=== PATIENT | male | born 1995 | race Caucasian/White ===

== ENCOUNTER 2017-10-29 19:49 | Inpatient (IN) | payer OTHER, BC ==
[~2017-10-29] VITALS: Ht 180.3 cm; Wt 59.0 kg
[2017-10-29] MEDS ORDERED: ACETAMINOPHEN 325 MG TABLET PO PRN (21:00)
[2017-10-29] MEDS ORDERED: METHOCARBAMOL 750 MG TABLET PO PRN (21:00)
[2017-10-29] MEDS ORDERED: MIRALAX 17 GM POWD.PACK PO PRN (21:00)
[2017-10-29] MEDS ORDERED: diphenhydrAMINE 50 MG CAPSULE PO PRN (21:00)
[2017-10-29] MEDS ORDERED: BUPRENORPHINE HCL 2 MG TAB.SUBL SL PRN (21:00)
[2017-10-29] MEDS ORDERED: CLONIDINE HCL 0.1 MG TABLET PO PRN (21:00)
[2017-10-29] MEDS ORDERED: ONDANSETRON ODT 4 MG TAB.RAPDIS SL PRN (21:00)
[2017-10-29] MEDS ORDERED: LORAZEPAM 1 MG TABLET PO PRN ×2 (21:00)
[2017-10-29] MEDS ORDERED: LORAZEPAM 2 MG/1 ML VIAL IM PRN (21:00)
[2017-10-29] MEDS ORDERED: DICYCLOMINE HCL 20 MG TABLET PO PRN (21:00)
[2017-10-29] MEDS ORDERED: ONDANSETRON 4 MG/2 ML VIAL IM PRN (21:00)
[2017-10-29] MEDS ORDERED: MAGNESIUM HYDROXIDE 30 ML LIQUID UDC PO PRN (21:00)
[2017-10-29] MEDS ORDERED: MAG HYDROX/AL HYDROX/SIMETH 30 ML LIQUID UDC PO PRN (21:00)
[2017-10-29] MEDS ORDERED: LOPERAMIDE HCL 2 MG CAPSULE PO PRN ×2 (21:00)
[2017-10-29 22:39] LABS: *AMPHETAMINE, URINE POSITIVE (NEGATIVE); *BARBITURATE, URINE NEGATIVE (NEGATIVE); *CANNABINOID, URINE NEGATIVE (NEGATIVE); *COCCAINE, URINE NEGATIVE (NEGATIVE); *OPIATE, URINE POSITIVE (NEGATIVE); *PHENCYCLIDINE SCREEN,URINE NEGATIVE (NEGATIVE)
[2017-10-30] VITALS: BP 132/84
[2017-10-30 02:29] LABS: BASOPHILS % (AUTO) 0.3 % (0.0-2.0); EOSINOPHILS # (AUTO) 0.1 K/uL (0.0-0.7); EOSINOPHILS % (AUTO) 1.6 % (0.0-7.0); HEMOGLOBIN 14.4 G/DL (14.0-18.0); LYMPHOCYTES # (AUTO) 2.8 K/UL (0.8-4.8); LYMPHOCYTES % (AUTO) 41.9 % (20.5-51.5); MEAN CORPUSCULAR HEMOGLOBIN 28.8 UUG (27.0-31.0); MEAN CORPUSCULAR HGB CONC 33 g/dL (32.0-37.0); MEAN CORPUSCULAR VOLUME 88.3 FL (82.0-92.0); MONOCYTES # (AUTO) 0.5 K/UL (0.1-1.30); MONOCYTES % (AUTO) 7.8 % (0.0-11.0); NEUTROPHILS # (AUTO) 3.2 K/UL (1.8-8.9); NEUTROPHILS % (AUTO) 48.4 % (38.5-71.5); PLATELET COUNT (AUTO) 292 K/UL (150-450); RED BLOOD CELL COUNT(AUTO) 4.98 MIL/UL (4.7-6.1); WHITE BLOOD COUNT (AUTO) 6.6 K/UL (4.0-11.2)
[2017-10-30 02:32] LABS: ETHANOL < 3 MG/DL (0-0)
[2017-10-30 04:00] VITALS: BP 128/76
[2017-10-30 04:48] LABS: ALANINE AMINOTRANSFERASE 40 U/L (16-63); ALKALINE PHOSPHATASE 70 U/L (50-136); ASPARTATE AMINOTRANSFERASE 36 U/L (15-37); BILIRUBIN,TOTAL 0.4 mg/dL (0.2-1.0); CARBON DIOXIDE 27 mmol/L (21-32); CHLORIDE 103 mmol/L (98-107); CREATININE 1.1 mg/dL (0.6-1.3); GLUCOSE 103 mg/dL (74-106); MAGNESIUM 2.1 mg/dL (1.8-2.4); POTASSIUM 3.9 mmol/L (3.5-5.1); TOTAL PROTEIN, SERUM 7.4 g/dL (6.4-8.2); UREA NITROGEN, BLOOD 16 mg/dL (7-18)
[2017-10-30 08:00] VITALS: BP 102/60
[2017-10-30] MEDS ORDERED: TUBERCULIN,PURIF.PROT.DERIV. 5 TU/0.1 ML TEST ID ONE (09:00)
[2017-10-30] MEDS: BUPRENORPHINE HCL 2 MG TAB.SUBL SL SCH ×4 (09:00→21:50)
[2017-10-30 12:00] VITALS: BP 108/63
[2017-10-30 16:00] VITALS: BP 110/68
[2017-10-30] MEDS ORDERED: ACET-2154 PO (17:45)
[2017-10-30 20:00] VITALS: BP 135/68
[2017-10-30] MEDS: GABAPENTIN 300 MG CAPSULE PO SCH (21:00)
[2017-10-30] MEDS: IBUPROFEN 600 MG TABLET PO PRN (22:50)
[2017-10-31] VITALS: BP 124/76
[2017-10-31] MEDS: IBUPROFEN 600 MG TABLET PO PRN (08:07)
[2017-10-31] MEDS: BUPRENORPHINE HCL 2 MG TAB.SUBL SL SCH ×3 (08:09→21:56)
[2017-10-31 08:38] LABS: HEPATITIS B SURFACE AG Negative (Negative)
[2017-10-31] MEDS: GABAPENTIN 300 MG CAPSULE PO SCH ×3 (09:00→21:00)
[2017-10-31 09:36] VITALS: BP 110/59
[2017-10-31 12:00] VITALS: BP_SYST 109; BP_SYST 166; BP_DIAS 62; BP_DIAS 7
[2017-10-31] MEDS ORDERED: KETOROLAC TROMETHAMINE 30 MG INJ IM PRN (13:00)
[2017-10-31] MEDS ORDERED: BENZOCAINE ORAL CARE 12 ML BOTTLE MM PRN (13:00)
[2017-10-31 16:30] VITALS: BP 126/53
[2017-10-31 20:00] VITALS: BP 134/71
[2017-11-01] VITALS: BP 137/77
[2017-11-01 04:00] VITALS: BP 132/72
[2017-11-01 08:00] VITALS: BP 129/72
[2017-11-01] MEDS ORDERED: BUPRENORPHINE HCL 2 MG TAB.SUBL SL SCH (09:00)
[2017-11-01] MEDS: GABAPENTIN 300 MG CAPSULE PO SCH (09:00)
[2017-11-01] MEDS: IBUPROFEN 600 MG TABLET PO PRN ×2 (10:09→21:57)
[2017-11-01 12:00] VITALS: BP 121/61
[2017-11-01] MEDS: BUPRENORPHINE HCL 2 MG TAB.SUBL SL SCH ×2 (15:00→21:57)
[2017-11-01 16:00] VITALS: BP 135/79
[2017-11-01 20:00] VITALS: BP 140/80
[2017-11-02] VITALS: BP 122/70
[2017-11-02 04:00] VITALS: BP 75/70
[2017-11-02 08:00] VITALS: BP 115/65
[2017-11-02] MEDS: BUPRENORPHINE HCL 2 MG TAB.SUBL SL SCH ×3 (09:50→20:53)
[2017-11-02 12:00] VITALS: BP 133/72
[2017-11-02 16:00] VITALS: BP 125/68
[2017-11-02 20:00] VITALS: BP 136/65
[2017-11-03] VITALS: BP 128/77
[2017-11-03] MEDS: IBUPROFEN 600 MG TABLET PO PRN ×3 (00:27→21:00)
[2017-11-03 08:00] VITALS: BP 115/85
[2017-11-03] MEDS ORDERED: BUPRENORPHINE HCL 2 MG TAB.SUBL SL SCH (09:00)
[2017-11-03 12:00] VITALS: BP 108/74
[2017-11-03 16:00] VITALS: BP 110/65
[2017-11-03 20:00] VITALS: BP 119/64
[2017-11-04] VITALS: BP 121/65
[2017-11-04] MEDS: IBUPROFEN 600 MG TABLET PO PRN (04:23)
[2017-11-04 08:00] VITALS: BP 121/65
== END 2017-11-04 09:33 | disposition other institution (70) | DRG 895 ==
LOC: SRC 20:07
PROVIDERS: ADMIT Internal Medicine; ATTEND Internal Medicine
PROC: HZ2ZZZZ Detoxification Services for Substance Abuse Treatment (ICD-10-PCS; principal; 2017-10-29)
PROC: HZ41ZZZ Group Counseling for Substance Abuse Treatment, Behavioral (ICD-10-PCS; 2017-11-03)
DX: F15.23 Other stimulant dependence with withdrawal (principal); F33.1 Major depressive disorder, recurrent, moderate; F11.23 Opioid dependence with withdrawal; F10.230 Alcohol dependence with withdrawal, uncomplicated; F12.90 Cannabis use, unspecified, uncomplicated; Y90.9 Presence of alcohol in blood, level not specified; Z59.0 Homelessness; Z82.49 Family history of ischemic heart disease and other diseases of the circulatory system; Z81.3 Family history of other psychoactive substance abuse and dependence; F17.210 Nicotine dependence, cigarettes, uncomplicated; Z91.89 Other specified personal risk factors, not elsewhere classified; K08.89 Other specified disorders of teeth and supporting structures; Z59.1 Inadequate housing
CPT/HCPCS: 36415; 70030-TC; 80307; 80324; 80361; 83735; 85025; 86580; 86592; 86705; 86803; 87340; 87806; A4663; G0480

== ENCOUNTER 2018-04-19 18:05 | Inpatient (IN) | payer OTHER, BC ==
[~2018-04-19] VITALS: Ht 180.3 cm; Wt 63.5 kg
[~2018-04-19 18:05] MED LIST: ACET-2154 PO
--- NOTE | 2018-04-19 18:57 | NUR ---
Intake assessment Patient is a 22-year old, male, seen at intake, A&Ox4, no SOB and no anxiety noted at this time. Discussed with patient admission policies of the unit. Patient is coherent and able to respond to questions appropriately. Pt is ambulatory with steady gait. Pt reports that he has been using these substances daily for the past 8 months: Heroin 3 gm IV daily , Methamphetamine 1 gm smoke daily, and Xanax 2 mg infrequently. Smokes tobacco 2 packs/day. Pt reports he last used heroin 1 gram this morning. He last used meth about 2 hours ago, Xanax last week. He has not used ETOH. Vital signs taken and as follows: TW=029/63, P=120, O2 sat on RA=99%, RR=20, T=98.7. Pt has NKA, history of withdrawal induced seizures. Last seizure 2011. Past history of intoxication induced overdose. PMH of depression. Pt states he does not take daily medications. Pt presents as unshaved, disheveled, dirty finger nails and odorous. Avoids eye contact, restless, easily distracted, fine tremors. Pt verbalized instructions and teachings regarding disposal of narcotics, unit protocols such as taking of vital signs Q4H and handling and disposal of contraband.
[2018-04-19] MEDS ORDERED: ONDANSETRON ODT 4 MG TAB.RAPDIS SL PRN (19:00)
[2018-04-19] MEDS ORDERED: MAG HYDROX/AL HYDROX/SIMETH 30 ML LIQUID UDC PO PRN (19:00)
[2018-04-19] MEDS ORDERED: LORAZEPAM 1 MG TABLET PO PRN (19:00)
[2018-04-19] MEDS ORDERED: MIRALAX 17 GM POWD.PACK PO PRN (19:00)
[2018-04-19] MEDS ORDERED: DICYCLOMINE HCL 20 MG TABLET PO PRN (19:00)
[2018-04-19] MEDS ORDERED: MAGNESIUM HYDROXIDE 30 ML LIQUID UDC PO PRN (19:00)
[2018-04-19] MEDS ORDERED: LOPERAMIDE HCL 2 MG CAPSULE PO PRN ×2 (19:00)
[2018-04-19] MEDS ORDERED: ACETAMINOPHEN 325 MG TABLET PO PRN (19:00)
[2018-04-19] MEDS ORDERED: CLONIDINE HCL 0.1 MG TABLET PO PRN (19:00)
[2018-04-19] MEDS ORDERED: LORAZEPAM 2 MG/1 ML VIAL IM PRN (19:00)
[2018-04-19] MEDS ORDERED: HYDROXYZINE PAMOATE 25 MG CAPSULE PO PRN (19:00)
[2018-04-19] MEDS ORDERED: BUPRENORPHINE HCL 2 MG TAB.SUBL SL PRN (19:00)
[2018-04-19] MEDS ORDERED: diphenhydrAMINE 50 MG CAPSULE PO PRN (19:00)
[2018-04-19] MEDS ORDERED: ONDANSETRON 4 MG/2 ML VIAL IM PRN (19:00)
[2018-04-19 19:23] LABS: *AMPHETAMINE, URINE POSITIVE (NEGATIVE); *BARBITURATE, URINE NEGATIVE (NEGATIVE); *CANNABINOID, URINE NEGATIVE (NEGATIVE); *COCCAINE, URINE NEGATIVE (NEGATIVE); *OPIATE, URINE POSITIVE (NEGATIVE); *PHENCYCLIDINE SCREEN,URINE NEGATIVE (NEGATIVE)
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
[2018-04-19 20:00] VITALS: BP 131/75
[2018-04-19] MEDS: GABAPENTIN 300 MG CAPSULE PO SCH ×2 (21:00→21:39)
[2018-04-19] MEDS ORDERED: LORAZEPAM 1 MG TABLET PO SCH (21:00)
[2018-04-19] MEDS: DOXYCYCLINE HYCLATE 100 MG TABLET PO SCH (21:38)
--- NOTE | 2018-04-19 21:38 | NUR ---
Meds Refused Neurontin 300mg PO scheduled for 2100 and Benedryl 50mg PO PRN refused despite being requested. Will continue to monitor and promptly attend to all pt needs
--- NOTE | 2018-04-20 | NUR ---
COWS/CIWA Deferred. Able to obtain midnight VS's, however pt too somnalent for attempt at COWS/CIWA. VSS's. Will continue to monitor pt, promptly attending to all pt needs.
[2018-04-20 00:15] VITALS: BP 113/67
[2018-04-20 00:31] LABS: ETHANOL < 3 MG/DL (0-0)
[2018-04-20 00:35] LABS: ALANINE AMINOTRANSFERASE 34 U/L (16-63); ALKALINE PHOSPHATASE 105 U/L (50-136); ASPARTATE AMINOTRANSFERASE 21 U/L (15-37); BILIRUBIN,TOTAL 0.2 mg/dL (0.2-1.0); CARBON DIOXIDE 31 mmol/L (21-32); CHLORIDE 103 mmol/L (98-107); CREATININE 0.9 mg/dL (0.6-1.3); GLUCOSE 112 mg/dL (74-106); MAGNESIUM 1.9 mg/dL (1.8-2.4); POTASSIUM 3.9 mmol/L (3.5-5.1); TOTAL PROTEIN, SERUM 7.6 g/dL (6.4-8.2); UREA NITROGEN, BLOOD 17 mg/dL (7-18)
[2018-04-20 01:27] LABS: THYROID STIMULATING HORMONE 0.094 mIU/mL (0.358-3.740)
[2018-04-20 04:00] VITALS: BP 110/59
--- NOTE | 2018-04-20 05:15 | NUR ---
Admission Attempt Attempt made to rouse pt and continue/complete admission. When pt responded with barely audible words "I'm tired". Unable to complete admission, will report to day RN in endorsement as to areas needing completion.
--- NOTE | 2018-04-20 06:00 | NUR ---
Lab Refusal Lab attempt to redraw CBC (first was clotted) refused by pt r/t sleeping. Will inform day RN in endorsement to contact lab when pt awake.
--- NOTE | 2018-04-20 06:25 | NUR ---
After prodding by CN, pt agrees to try to progress with admission. With great prodding and loudly speaking RN able to complete another 25% of final assessment. Will report of to Day nurse as to areas needing completion.
--- NOTE | 2018-04-20 06:40 | NUR ---
End of Shift Pt is a 22 y/o male admitted 04/19/18 for medically managed withdrawal/detox from Xanax, Heroin and Methamphetamine salts. Gabapentin 300mg PO and Benedryl 50mg PO were refused with evening meds, there were no other PRN's. Pt slept for 9 hours, with 588 mls intake, 1 voids and 0 BM. Last COWS was 6 at 04:00. Due to pt's early intoxication and continued somnolence admission will be completed by day RN. Repeat CBC refused by pt at 06:00 r/t sleeping. Will continue to monitor pt until endorsement, promptly attending to all pt needs.
--- NOTE | 2018-04-20 07:50 | NUR ---
START OF SHIFT NOTE Received report from night nurse, 22 year old male admitted for Xanax/ Heroin/Meth withdrawal. Patient continues with Subutex taper tolerating well. Per endorsement patient did not receive any PRN'S, patient refused his scheduled gabapentin, COWS-6, slept for 9 hours. Patient cont with PO antibiotic for RUE cellulitis. Received patient asleep responsive to verbal and tactile stimuli. Breathing normal no SOB noted, skin intact warm and dry to touch. Patient is due for scheduled medications. All safety measures in place. Will cont to monitor.
[2018-04-20 08:00] VITALS: BP 117/63
[2018-04-20] MEDS: GABAPENTIN 300 MG CAPSULE PO SCH ×3 (08:32→20:07)
[2018-04-20] MEDS: DOXYCYCLINE HYCLATE 100 MG TABLET PO SCH ×2 (08:32→20:06)
[2018-04-20] MEDS ORDERED: TUBERCULIN,PURIF.PROT.DERIV. 5 TU/0.1 ML TEST ID ONE (09:00)
[2018-04-20] MEDS: BUPRENORPHINE HCL 2 MG TAB.SUBL SL SCH ×3 (09:57→20:06)
[2018-04-20 12:00] VITALS: BP 142/86
[2018-04-20] MEDS: IBUPROFEN 600 MG TABLET PO PRN (13:11)
[2018-04-20] MEDS: METHOCARBAMOL 750 MG TABLET PO PRN (13:11)
--- NOTE | 2018-04-20 13:11 | NUR ---
PRN MEDICATIONS Patient reported body aches restless legs, muscle spasms 6/10, nausea. PRN Motrin 600mg PO. Robaxin 750MG PO, Zofran 4mg SL as ordered. Will cont to monitor and reassess.
--- NOTE | 2018-04-20 13:33 | NUR ---
ZOFRAN REASSESSMENT Per patient nausea improved.
--- NOTE | 2018-04-20 14:11 | NUR ---
PRN REASSESSMENT Per patient Motrin and Robaxin was effective in lowering the body aches, restless legs and muscle spasms 2/10.
[2018-04-20 16:00] VITALS: BP 143/77
[2018-04-20] MEDS: LORAZEPAM 1 MG TABLET PO PRN (17:25)
--- NOTE | 2018-04-20 17:32 | NUR ---
PRN MEDICATIONS Patient's CIWA score noted 13, COWS score noted-15, patient noted restless anxious, agitated, difficult to sit still, goose bumps, body aches, light headed, sweats, chills. PRN Subutex 4mg SL, Ativan 2mg PO given as ordered. Will cont tto monitor and reassess.
--- NOTE | 2018-04-20 18:00 | NUR ---
SUBUTEX REASSESSMENT COWS score noted 9, patient reported Subutex was effective in controlling s/s of withdrawal.
--- NOTE | 2018-04-20 18:32 | NUR ---
ATIVAN REASSESSMENT CIWA score noted 8, per patient Ativan was effective in controlling s/s of withdrawal.
[2018-04-20 18:39] LABS: BASOPHILS % (AUTO) 0.2 % (0.0-2.0); EOSINOPHILS % (AUTO) 0.2 % (0.0-7.0); HEMOGLOBIN 13.7 g/dL (12.5-16.3); LYMPHOCYTES # (AUTO) 1.4 K/uL (20.0-40.0); LYMPHOCYTES % (AUTO) 19.8 % (20.5-51.5); MEAN CORPUSCULAR HGB CONC 34 g/dL (32.5-36.3); MEAN CORPUSCULAR VOLUME 83.7 fL (73.0-96.2); MONOCYTES # (AUTO) 0.3 K/uL (2.0-10.0); MONOCYTES % (AUTO) 4.9 % (0.0-11.0); NEUTROPHILS # (AUTO) 5.1 K/uL (1.8-8.9); NEUTROPHILS % (AUTO) 74.9 % (38.5-71.5); PLATELET COUNT (AUTO) 328 K/uL (152-348); RED BLOOD CELL COUNT(AUTO) 4.89 MIL/uL (4.06-5.63); WHITE BLOOD COUNT (AUTO) 6.8 K/uL (3.6-10.2)
--- NOTE | 2018-04-20 19:07 | NUR ---
END OF SHIFT NOTE Gave report to night nurse, patient admitted for Heroin/Xanax/Meth withdrawal. Patient cont with his Subutex taper and PRN'S Ativan tolerating well. Patient presented with anxiety, agitation, body aches, restless, goose bumps, nauseated, muscle cramps, restless legs. Patient was given PRN Motrin, Robaxin, Zofran, Subutex, Ativan noted to be effective. Patient rested in his room most of the day did not attend any group. Encourage patient to attend groups to learn new coping skills. Patient consumed 100% of his meals. Patient is compliant with treatment plan and medications. All safety measures in place. Patient endorsed to night nurse in stable condition.
--- NOTE | 2018-04-20 19:30 | NUR ---
Start of Shift Pt is a 22 y/o male admitted 04/19/18 for medically managed withdrawal/detox from Heroin, Xanax, and Methamphetamine salts. Pt found in bed asleep, arousable to voice after repeated attempts and/or touch and extremely drowsy, unable to stay awake longer than a few seconds, or answer questions with more than a couple of syllables. Endorsement from day nurse reports a COWS of 9, with multiple PRN's, including Subutex and Ativan. Pt presents with c/o restless legs. Pt asked if able to finish admission questioning at present, replies "I'm not feeling well". Pt tossing in bed when awake, unshaven, disheveled, odorous. Evening meds reviewed with pt. Will continue to monitor pt for shift until giving endorsement, promptly attending to all pt needs.
[2018-04-20 20:00] VITALS: BP 103/57
[2018-04-20] MEDS: CLONIDINE HCL 0.1 MG TABLET PO SCH (20:06)
[2018-04-20] MEDS: BACLOFEN 10 MG TABLET PO SCH (20:07)
[2018-04-21] VITALS: BP 121/61
[2018-04-21 04:00] VITALS: BP 96/48
[2018-04-21] MEDS: METHOCARBAMOL 750 MG TABLET PO PRN ×2 (04:17→10:02)
[2018-04-21] MEDS: LORAZEPAM 1 MG TABLET PO PRN (04:17)
--- NOTE | 2018-04-21 04:17 | NUR ---
PRN Med Ativan 2mg PO for a CIWA of 13, Robaxin 750mg PO for back myalgias, legs, 7/10 pain. Pt asked if able to take 5-10 minutes to complete admission. Pt replies, "not right now, I need to get some sleep". Pt agrees 6am is ok to finish admission. Will continue to monitor pt, reassessing in 1 hour, and promptly attending to all needs
--- NOTE | 2018-04-21 05:17 | NUR ---
PRN Reassessments Robaxin 750mg PO and Ativan 2mg PO given 1 hour prior. At present pt appears improved, but still some restlessness and agitation/thrashing present. Meds paritally effective.
[2018-04-21] MEDS: IBUPROFEN 600 MG TABLET PO PRN ×2 (05:33→10:02)
--- NOTE | 2018-04-21 05:36 | NUR ---
PRN Med Motrin 600mg PO given for body aches/myalgias, Pt unable to articulate. Restlessness, thrashing, agitation benedict indicators. Will continue to monitor pt, promptly attending to all pt needs.
--- NOTE | 2018-04-21 06:30 | NUR ---
Admission Attempts Attempts for additional admission information made during night. Earlier, pt says not feeling well. Later at 0400, pt asked if able to complete admission, replies to come back later, that he hadn't had any sleep all night. Pt agrees to 6am. At 6 am attempt made with loudly and repeatedly trying to rouse pt by voice and plascencia back/shoulder/arm rubbing. Unable to get info from Pt regarding use, pt says "I don't know"! Endorsement given to day nurse, Citlalli, who will attempt to finish admission information or leave pt coherent for evening shift early completion.
--- NOTE | 2018-04-21 06:33 | NUR ---
PRN Reassessment Motrin 600mg PO given 1 hour prior for body aches/myalgias. At present pt is resting more quietly, less tossing/thrashing. Med effective. Will continue to monitor until giving endorsement, promptly attending to all pt needs.
--- NOTE | 2018-04-21 06:37 | NUR ---
End of Shift Pt is a 22 y/o male admitted 04/19/18 for medically managed withdrawal/detox from Heroin, Xanax, and Methamphetamine salts. PRN's for shift include: Ativan 2mg PO, Robaxin 750mg PO at 0417, Motrin 600mg PO at 0533. Last COWS/CIWA was 16 and 13 at 0400. Pt slept for 9 hours, with 850 mls input, 2 voids and 1 BM's. Will continue to monitor pt for shift until giving endorsement, promptly attending to all pt needs.
--- NOTE | 2018-04-21 07:10 | NUR ---
START OF SHIFT : PATIENT IS A 22 YR OLD MALE ADMITTED TO [facility] ON 04/19/18 FOR A MEDICALLY SUPERVISED WITHDRAWAL FROM BENZODIAZEPINES( XANAX), OPIATES ( HEROIN IV) AND METHAMPHETAMINES, HE IS ON A SUBUTEX TAPER WITH PRN ATIVAN. PATIENT IS ASLEEP IN BED AT THIS TIME, BREATHING EVEN AND UNLABORED, SIDE RAILS UP X2. PRN MEDS GIVEN ON PM SHIFT : ATIVAN 2MG PO, ROBAXIN AND MOTRIN. PATIENT SLEPT FOR 9+ HOURS AND LAST COWS 16 AND CIWA 13 @ 0400. CONTINUE TO FOLLOW MD PLAN OF CARE AND OFFER SUPPORT.
[2018-04-21 08:00] VITALS: BP 104/53
[2018-04-21] MEDS ORDERED: BUPRENORPHINE HCL 2 MG TAB.SUBL SL SCH ×2 (09:00→15:00)
[2018-04-21] MEDS: DOXYCYCLINE HYCLATE 100 MG TABLET PO SCH ×2 (10:02→20:49)
[2018-04-21] MEDS: BACLOFEN 10 MG TABLET PO SCH ×3 (10:02→20:48)
[2018-04-21] MEDS: GABAPENTIN 300 MG CAPSULE PO SCH ×2 (10:02→14:54)
[2018-04-21] MEDS: CLONIDINE HCL 0.1 MG TABLET PO SCH ×3 (10:03→20:49)
--- NOTE | 2018-04-21 10:10 | NUR ---
PRN MEDICATION ATIVAN 1MG PO FOR CIWA 12 ROBAXIN 750MG PO/MOTRIN 600MG PO/ BENTYL 20MG PO FOR GENERALIZED MUSCLE PAIN WILL REASSESS
[2018-04-21] MEDS ORDERED: KETOROLAC TROMETHAMINE 30 MG INJ IM PRN (10:45)
--- NOTE | 2018-04-21 11:10 | NUR ---
PRN REASSESS PATIENT IS ASLEEP COMFORTABLY IN BED, BREATHING EVEN AND UNLABORED, WILL CONTINUE TO MONITOR
[2018-04-21 12:00] VITALS: BP 105/64
[2018-04-21] MEDS: BUPRENORPHINE HCL 2 MG TAB.SUBL SL SCH ×3 (13:09→20:47)
--- NOTE | 2018-04-21 15:45 | NUR ---
BLOOD LABS DRAWN
--- NOTE | 2018-04-21 16:00 | NUR ---
1600 VITALS REFUSED BY PATIENT
[2018-04-21 16:27] LABS: CREATININE 0.8 mg/dL (0.6-1.3); MAGNESIUM 1.9 mg/dL (1.8-2.4); POTASSIUM 4.3 mmol/L (3.5-5.1)
[2018-04-21 16:41] LABS: THYROID STIMULATING HORMONE 1.202 mIU/mL (0.358-3.740)
[2018-04-21 17:08] LABS: HEPATITIS B SURFACE AG Negative (Negative)
--- NOTE | 2018-04-21 18:47 | NUR ---
END OF SHIFT : PATIENT IS A 22 YR OLD MALE ADMITTED TO [facility] ON 04/19/18 FOR A MEDICALLY SUPERVISED DETOX FROM BENZODIAZEPINES AND OPIATES ( HEROIN IV)AND METHAMPHETAMINES. HE IS ON A 5 DAY SUBUTEX TAPER AND THIS IS DAY 2. PATIENT HAS SPENT MOST OF THE DAY ASLEEP IN BED, VITAL SIGNS STABLE, AWAKENS ONLY TO TAKE MEDS, NOT EATING MEALS BUT IS DRINKING FLUID. PRN MEDS GIVEN THIS SHIFT: ROBAXIN 750MG PO, MOTRIN 600MG PO, ATIVAN 1MG PO AND BENTYL 20MG PO. PATIENT HAD A FLUID INTAKE OF 750 ML,1 VOID AND 0 BM. PATIENT APPEARS UNSHAVEN, UNKEMPT AND ODOROUS AND LIES IN POSITION WITH COVERS PULLED OVER HIS HEAD, ENCOURAGED PATIENT TO GET UP AND TAKE A SHOWER BUT HE STATES " I'M TIRED I JUST WANT TO SLEEP ", HE IS HIGHLY AGITATED AND IRRITABLE WHEN TRYING TO GET A VERBAL RESPONSE. LAST COWS 13 @ 1600. CONTINUE TO FOLLOW MD PLAN OF CARE AND OFFER SUPPORT. ENDORSED TO NIGHT NURSE.
--- NOTE | 2018-04-21 19:30 | NUR ---
Start of Shift Pt is a 22 y/o male admitted 04/19/18 for medically managed withdrawal/detox from Xanax, Heroin, and Methamphetamine salts. Endorsement received from day nurse, admission reported as complete. Pt report and observation consistent: pt in darkened room in bed with tv on. Pt appears to be sleeping, upper half wrapped in sheets with head coverd, pt responds to repeated voice, hypoactive, lethargic. Evening meds reviewed with pt, Ativan/Subutex both scheduled. Will continue to monitor patient for duration of shift until morning endorsement, promptly attending to all pt needs.
[2018-04-21 20:00] VITALS: BP 120/62
[2018-04-21] MEDS ORDERED: GABAPENTIN 300 MG CAPSULE PO SCH (21:00)
[2018-04-21] MEDS ORDERED: LORAZEPAM 1 MG TABLET PO SCH (21:00)
--- NOTE | 2018-04-22 | NUR ---
VS's COWS Deferred Midnight VS's, COWS deferred r/t pt sleeping/refused. RR 14, even and nonlabored. Will continue to monitor pt, promptly attending to all needs.
--- NOTE | 2018-04-22 04:00 | NUR ---
VS's COWS Deferred 0400 VS's, COWS deferred r/t pt sleeping/refused. RR 14, even and nonlabored. Will continue to monitor pt, promptly attending to all needs.
[2018-04-22 06:27] LABS: BASOPHILS % (AUTO) 0.5 % (0.0-2.0); EOSINOPHILS # (AUTO) 0.1 K/uL (0.0-0.7); EOSINOPHILS % (AUTO) 1.9 % (0.0-7.0); HEMOGLOBIN 13.3 g/dL (12.5-16.3); LYMPHOCYTES # (AUTO) 1.9 K/uL (20.0-40.0); LYMPHOCYTES % (AUTO) 31.4 % (20.5-51.5); MEAN CORPUSCULAR HGB CONC 33 g/dL (32.5-36.3); MONOCYTES # (AUTO) 0.4 K/uL (2.0-10.0); MONOCYTES % (AUTO) 6.3 % (0.0-11.0); NEUTROPHILS # (AUTO) 3.7 K/uL (1.8-8.9); NEUTROPHILS % (AUTO) 59.9 % (38.5-71.5); PLATELET COUNT (AUTO) 289 K/uL (152-348); RED BLOOD CELL COUNT(AUTO) 4.76 MIL/uL (4.06-5.63); WHITE BLOOD COUNT (AUTO) 6.1 K/uL (3.6-10.2)
--- NOTE | 2018-04-22 07:02 | NUR ---
End of Shift Pt is a 22 y/o male admitted 04/19/18 for medically managed withdrawal/detox from Xanax, Heroin, and Methamphetamine salts. Pt's affect/mood remains labile, uncooperative ignoring nursing requests, passing glaring looks at nurse. There were no PRN meds given this shift . Pt slept for 8 hours, with 1827 input, 1 voids and 0 BM's. Will continue to monitor patient for duration of shift until morning endorsement, promptly attending to all pt needs.
[2018-04-22 08:00] VITALS: BP 106/60
--- NOTE | 2018-04-22 08:15 | NUR ---
START OF SHIFT: RECEIVED PT A/O X 4. HE PRESENTS WITH IRRITABLE MOOD AND CONGRUENT AFFECT. HE REPORTS BODY ACHES,SWEATS,RESTLESS LEGS AND AGITATION. HE IS DISHEVELED AND FIDGETY. SUBUTEX TAPER IN PROGRESS TO MANAGE S/S OF W/D. COWS 7 CIWA 8. ENCOURAGED INCREASED FLUIDS TO ASSIST IN FACILITATING DETOX PROCESS. ENCOURAGED GROUP[ ATTENDANCE TO IMPROVE COPING SKILLS AND PREVENT RELAPSE/ WILL CONTINUE TO MONITOR AND OFFER SUPPORT.
[2018-04-22] MEDS: BACLOFEN 10 MG TABLET PO SCH (09:49)
[2018-04-22] MEDS: CLONIDINE HCL 0.1 MG TABLET PO SCH ×2 (09:49→15:22)
[2018-04-22] MEDS: DOXYCYCLINE HYCLATE 100 MG TABLET PO SCH ×2 (09:50→20:57)
[2018-04-22] MEDS: BUPRENORPHINE HCL 2 MG TAB.SUBL SL SCH ×3 (09:50→20:57)
[2018-04-22] MEDS: GABAPENTIN 300 MG CAPSULE PO SCH ×3 (09:50→20:57)
[2018-04-22 12:00] VITALS: BP 117/61
[2018-04-22] MEDS: BACLOFEN 20 MG TABLET PO SCH ×2 (15:21→20:57)
[2018-04-22 16:00] VITALS: BP 115/59
--- NOTE | 2018-04-22 18:48 | NUR ---
END OF SHIFT: PT CONTINUES ON SUBUTEX TAPER TO MANAGE S/S OF W/D WHICH INCLUDE REPORTED BODY ACHES,ANXIETY,CHILLS,SWEATS AND RESTLESSNESS. LAST COWS 5 CIWA 6. HE SLEPT ON AND OFF MOST OF SHIFT AND WAS COMPLIANT WITH INCREASED FLUIDS. EDUCATED PT ON IMPORTANCE OF GROUP ATTENDANCE AND LEARNING NEW COPING SKILLS. WILL PASS SHIFT REPORT TO ONCOMING NIGHT NURSE.
--- NOTE | 2018-04-22 19:30 | NUR ---
START OF SHIFT Pt is a 22 y/o male admitted on 04/19/18 for opiate, benzo and meth withdrawal. Pt is on a 5 day Subutex taper with PRN Ativan available, tolerating well. No PRNs and last COWS 5 and CIWA 6 during day shift. Upon assessment pt laying in bed and presents with anxiety, restlessness, yawning, intermittent sweats and chills, disheveled appearance, flat affect, dysphoria , anhedonia and is isolative. Pt also complains of toothache. Medications due. Safety measures in place. Call light within reach. Will continue to monitor.
[2018-04-22 20:00] VITALS: BP 120/68
[2018-04-22] MEDS: CLONIDINE HCL 0.2 MG TABLET PO SCH (21:00)
[2018-04-22] MEDS: IBUPROFEN 600 MG TABLET PO PRN (22:29)
--- NOTE | 2018-04-22 22:29 | NUR ---
PRN MOTRIN ADMINISTRATION Pt reports right-sided toothache 04/10. Safety measures in place. Call light within reach. Will continue to monitor.
--- NOTE | 2018-04-22 23:29 | NUR ---
PRN MOTRIN REASSESSMENT Pt laying in bed with eyes closed, medication noted effective. Safety measures in place. Call light within reach. Will continue to monitor.
--- NOTE | 2018-04-23 | NUR ---
COWS/CIWA DEFERRED AND VITALS REFUSED Pt laying in bed with eyes closed, COWS/CIWA deferred, to be assessed when pt is awake per orders. Vitals refused. Respirations even and unlabored. Safety measures in place. Call light within reach. Will continue to monitor.
[2018-04-23] MEDS: IBUPROFEN 600 MG TABLET PO PRN ×2 (05:44→21:06)
--- NOTE | 2018-04-23 05:44 | NUR ---
PRN Motrin Patient complained of 7/10 tooth pain. PRN Motrin administered as ordered. Will monitor for effectiveness of medication.
--- NOTE | 2018-04-23 06:44 | NUR ---
PRN MOTRIN REASSESSMENT Pt laying in bed with eyes closed, medication noted effective. Safety measures in place. Call light within reach. Will continue to monitor.
--- NOTE | 2018-04-23 07:07 | NUR ---
END OF SHIFT Pt is a 22 y/o male admitted on 04/19/18 for opiate, benzo and meth withdrawal. Pt is on a 5 day Subutex taper with PRN Ativan available, tolerating well. Pt presented with anxiety, restlessness, yawning, intermittent sweats and chills, disheveled appearance, difficulty staying asleep, flat affect, dysphoria , anhedonia and is isolative. Pt also complained of toothache. Scheduled medications and PRN Motrin x 2 administered, effective in S/S of withdrawal AEB COWS 6 and CIWA 8 lowered to COWS 6 and CIWA 7 and as verbalized by pt. Pt slept 7 hours. Intake 1000 ml, void x 3, stool x 0. Safety measures in place. Call light within reach. Pts needs have been met. Endorsed to day shift nurse.
[2018-04-23 08:00] VITALS: BP 142/73
--- NOTE | 2018-04-23 08:05 | NUR ---
START OF SHIFT: RECEIVED PT A/O X 4. HE PRESENTS WITH ANXIOUS MOOD AND GUARDED AFFECT. HE REPORTS BODY ACHES,RESTLESS LEGS AND ANXIETY. SUBUTEX TAPER IN PROGRESS TO MANAGE S/S OF W/D. COWS 6 CIWA 5. ENCOURAGED INCREASED FLUIDS TO ASSIST IN FACILITATING DETOX PROCESS. ENCOURAGED GROUP ATTENDANCE TO IMPROVE COPING SKILLS AND PREVENT RELAPSE. WILL CONTINUE TO MONITOR AND MANAGE S/S OF W/D.
[2018-04-23] MEDS: DOXYCYCLINE HYCLATE 100 MG TABLET PO SCH ×2 (08:30→21:06)
[2018-04-23] MEDS: BACLOFEN 20 MG TABLET PO SCH ×3 (08:30→21:06)
[2018-04-23] MEDS: BUPRENORPHINE HCL 2 MG TAB.SUBL SL SCH ×2 (08:31→21:07)
[2018-04-23] MEDS: GABAPENTIN 300 MG CAPSULE PO SCH ×3 (08:31→21:06)
[2018-04-23] MEDS: CLONIDINE HCL 0.1 MG TABLET PO SCH ×2 (08:32→14:53)
[2018-04-23 12:00] VITALS: BP 111/63
[2018-04-23 16:00] VITALS: BP 122/66
--- NOTE | 2018-04-23 19:29 | NUR ---
END OF SHIFT: PT CONTINUES ON SUBUTEX TAPER TO MANAGE S/S OF W/D WHICH INCLUDE REPORTED BODY ACHES,ANXIETY AND RESTLESSNESS. LAST COWS 5 CIWA 3. HE SLEPT ON AND OFF MOST OF SHIFT AND WAS COMPLIANT WITH INCREASED FLUIDS. EDUCATED PT ON IMPORTANCE OF GROUP ATTENDANCE AND LEARNING NEW COPING SKILLS. WILL PASS SHIFT REPORT TO ONCOMING NIGHT NURSE.
[2018-04-23 20:00] VITALS: BP 136/70
--- NOTE | 2018-04-23 20:00 | NUR ---
Start of Shift Note Received 22 y/o male px, admitted for medically supervised withdrawal from Heroin, Xanax and Methamphetamine. Px is placed on 5 day Subutex taper started on 04/20/2018. Px is tolerating it. Last reported COWS 5 and CIWA 3 by AM shift nurse. During the rounds at 2000, px looks disheveled and odorous. Px has good eye contact. Unfinished snacks and drinks noted on bed side table and on top of cabinet. Px stated "my anxiety is 6/10 and I have a toothache of 8/10. Can I have Motrin?" Bed on lowest position, side rails up 2x, and call light within reach.
[2018-04-23] MEDS: CLONIDINE HCL 0.2 MG TABLET PO SCH (21:06)
--- NOTE | 2018-04-23 21:06 | NUR ---
PRN Motrin Px received Motrin 600 mg/tab, 1 tab PO as PRN medication for toothache of 07/11. To reassess after an hour. We'll continue to monitor.
--- NOTE | 2018-04-23 22:10 | NUR ---
Reassessment of toothache Px stated that his toothache improved a little, 5-6 from 07/11. We'll continue to monitor.
[2018-04-24] VITALS: BP 113/61
[2018-04-24 04:00] VITALS: BP 111/66
--- NOTE | 2018-04-24 04:00 | NUR ---
COWS and CIWA deferred COWS and CIWA deferred at 0000 and 0400 due to the px is asleep, to assess if the px is awake per doctor's order. We'll continue to monitor.
--- NOTE | 2018-04-24 07:00 | NUR ---
End of Shift Note During the shift at 2106, px received Motrin 600 mg PO for toothache, it was effective. Px's oral intake is 1,500 ml, voided 3x, with No BM. Px slept for 7 hours. At 0630, px is asleep on bed in right side lying position. Last COWS 6 and CIWA 6. Bed on lowest position, side rails up 2x, and call light within reach. Px endorsed to AM shift nurse.
--- NOTE | 2018-04-24 07:10 | NUR ---
Start of Shift Notes: Received patient in his room. He is laying in bed. Eyes closed. Arousable when his name is called. Appears disheveled. Room is messy. Patient is odorous. Encouraged maintenance of personal hygiene and space. There are empty water bottles and juice bottles on the floor. Patient's room was kept neat and tidy. Patient is a 59 year old male admitted for opiate and BZO withdrawal who was placed on a 5-day Subutex and 5-day Ativan taper as ordered. No adverse reactions noted. He was given PRN Motrin during the night. Slept for 7 hours. Last . Educated patient on his current plan of care for the day and his medication regimen. Encouraged oral fluid intake and encouraged group participation to learn new skills to prevent relapse. Will continue to monitor closely. Addendum: 04/24/18 at 0835 by ADITI BOLIVAR LVN Clarification to note: Patient is not on 5-day Ativan taper. Only on 5-day Subutex.
[2018-04-24 08:00] VITALS: BP 104/68
[2018-04-24] MEDS: CLONIDINE HCL 0.1 MG TABLET PO SCH ×2 (08:29→14:42)
[2018-04-24] MEDS: GABAPENTIN 300 MG CAPSULE PO SCH ×3 (08:29→20:58)
[2018-04-24] MEDS: BACLOFEN 20 MG TABLET PO SCH ×3 (08:29→20:58)
[2018-04-24] MEDS: DOXYCYCLINE HYCLATE 100 MG TABLET PO SCH ×2 (08:29→20:57)
[2018-04-24] MEDS ORDERED: BUPRENORPHINE HCL 2 MG TAB.SUBL SL SCH (09:00)
[2018-04-24 12:00] VITALS: BP 107/65
[2018-04-24 16:00] VITALS: BP 104/61
--- NOTE | 2018-04-24 19:12 | NUR ---
End of Shift Notes: Patient completed his 5-day Subutex taper as ordered. Patient tolerated taper well. VS monitored closely. No significant abnormalities noted. Withdrawal symptoms were closely monitored. Initial COWS 13, patient presented with anxiety, pupil dilation, myalgia, yawning, agitation, chills, and hot flashes. Last COWS 8. Patient verbalizes that Subutex has been effective in reducing his withdrawal symptoms. Patient was encouraged to take a shower to enhance self care. Encouraged to attend group and activities due to episodes of self isolation. Appetite fair. All needs met and attended. Will continue to monitor closely.
[2018-04-24 20:00] VITALS: BP 118/66
--- NOTE | 2018-04-24 20:00 | NUR ---
Start of Shift Patient awake on bed, watching TV, AAOx4 and noted with anxiety and avoids eye contact. Patient also observed to be answering questions with one-word answers. Patient appears disheveled, with empty water bottles and food wrappers scattered on the floor. Patient is also odorous, with dirty fingernails, with a flushed face and dark under eye circles. Encouraged patient to be hygienic and educated with the importance of cleanliness. Discussed with patient plan of care, medications and treatment regimen. Fall, universal, seizure and safety prec in place. Call light within reach. Latest COWS=9. Will continue to monitor.
[2018-04-24] MEDS: CLONIDINE HCL 0.2 MG TABLET PO SCH (20:57)
[2018-04-24] MEDS ORDERED: BACL20TA PO (21:14)
[2018-04-24] MEDS ORDERED: IBUP-1955 PO (21:14)
[2018-04-24] MEDS ORDERED: CLON0.1T14 PO (21:14)
[2018-04-24] MEDS ORDERED: DIPH50CA37 PO (21:14)
[2018-04-24] MEDS ORDERED: HYDR-3895 PO (21:14)
[2018-04-24] MEDS ORDERED: DICY20TA28 PO (21:14)
[2018-04-24] MEDS ORDERED: GABA-534 PO (21:14)
[2018-04-25] VITALS: BP 112/63
[2018-04-25 04:00] VITALS: BP 109/65
--- NOTE | 2018-04-25 07:07 | NUR ---
End of Shift Patient asleep on bed but arousable and noted with anxiety. Patient continues to be disheveled, with empty water bottles, clothing and food wrappers scattered on the floor. Patient still continues to be odorous, with dirty fingernails, with a flushed face and dark under eye circles. Patient is aware that he is going to be discharged today to [facility]. No home meds. Patient took his shower and he verbalized, "I think I am ready for the next step." Fall, universal, seizure and safety prec in place. Call light within reach. Latest COWS=6, slept for 5 hours. Endorsed to AM shift nurse for continuity of care.
--- NOTE | 2018-04-25 07:30 | NUR ---
START OF SHIFT Pt 22 y/o male admitted for substance: heroin, xanax, and methamphetamine salts. Pt received in room on bed with eyes closed resting, but easily arousable to name. Pt alert and oriented to name, place, and time. Perrla. Skin warm and dry to touch. Respirations even and unlabored. It was reported that pt slept for 5 hours last night. Last cows=6 reported at 2100. Pt completed a 5 day subutex taper. Pt is scheduled to be discharged today. Bed on lowest position with side rails x2 up for safety. Call light within reach.
[2018-04-25 08:00] VITALS: BP 120/80
[2018-04-25 08:33] VITALS: BP 120/90
[2018-04-25] MEDS: IBUPROFEN 600 MG TABLET PO PRN (08:33)
[2018-04-25] MEDS: BACLOFEN 20 MG TABLET PO SCH (08:33)
[2018-04-25] MEDS: CLONIDINE HCL 0.1 MG TABLET PO SCH (08:33)
[2018-04-25] MEDS: GABAPENTIN 300 MG CAPSULE PO SCH (08:34)
--- NOTE | 2018-04-25 08:37 | NUR ---
PRN Pt states has headache /. Motrin po prn per MD order given and tolerated well.
--- NOTE | 2018-04-25 09:37 | NUR ---
PRN EVAL Pt states headache 02/08.
--- NOTE | 2018-04-25 10:12 | NUR ---
DISCHARGE Pt 22 y/o male admitted for substance abuse: heroin, xanax, and methamphetamine salts. Pt alert and oriented to name, place, and time. [place]. Skin warm and dry to touch. Respirations even and unlabored. Pt denies any SI/HI. No belongings in cassette and no home medications noted. Belongings in cabinet, discharge papers, and prescriptions packed in pt bag. VS wnl. Pt discharged to [facility] via private transport. No distress noted.
== END 2018-04-25 10:12 | disposition other institution (70) | DRG 895 ==
LOC: SRC 18:05
PROVIDERS: ADMIT Internal Medicine; ATTEND Internal Medicine
PROC: HZ2ZZZZ Detoxification Services for Substance Abuse Treatment (ICD-10-PCS; principal; 2018-04-19)
PROC: HZ51ZZZ Individual Psychotherapy for Substance Abuse Treatment, Behavioral (ICD-10-PCS; 2018-04-22)
DX: F11.23 Opioid dependence with withdrawal (principal); I15.9 Secondary hypertension, unspecified; F15.20 Other stimulant dependence, uncomplicated; Z86.74 Personal history of sudden cardiac arrest; F33.1 Major depressive disorder, recurrent, moderate; L03.113 Cellulitis of right upper limb; F17.210 Nicotine dependence, cigarettes, uncomplicated; S41.131S Puncture wound without foreign body of right upper arm, sequela; X78.8XXS Intentional self-harm by other sharp object, sequela; Z91.89 Other specified personal risk factors, not elsewhere classified; F13.230 Sedative, hypnotic or anxiolytic dependence with withdrawal, uncomplicated; F41.9 Anxiety disorder, unspecified; Z59.0 Homelessness; Z81.3 Family history of other psychoactive substance abuse and dependence; Z80.9 Family history of malignant neoplasm, unspecified; Z59.1 Inadequate housing; Z82.49 Family history of ischemic heart disease and other diseases of the circulatory system; E07.81 Sick-euthyroid syndrome; R73.9 Hyperglycemia, unspecified
CPT/HCPCS: 36415; 80307; 80324; 80361; 83735; 84443; 85025; 86580; 86592; 86705; 86803; 87340; 87806; A4663; G0480; Q0162; Q0163